=== PATIENT | female | born 1940 | race Caucasian/White ===

== ENCOUNTER 2016-11-05 13:01 | Emergency (ER) | payer MEDICARE ==
[~2016-11-05] VITALS: Ht 157.5 cm; Wt 54.0 kg
[~2016-11-05 13:01] MED LIST: ACET325 PO; AMLO5 PO; ATEN-102 PO; FLUN25I; LISI-363 PO; META0.52 PO; TAB-TAB PO; [UNRECOGNIZED DRUG - CODE] PO
[2016-11-05 13:03] VITALS: BP 162/84; PULSE 67; RESP 16; TEMP 97.7; O2SAT 99
--- NOTE | 2016-11-05 14:23 | RADRPT ---
EXAM DATE/TIME: 11/05/2016 13:58 [facility] COMPARISON: No previous studies available for comparison. INDICATIONS : Left hand pain after fall while walking. MEDICAL HISTORY : None. SURGICAL HISTORY : None. ENCOUNTER: Initial ACUITY: 1 day PAIN SCORE: 5/10 LOCATION: Left hand. FINDINGS: 3 views of the left hand demonstrate no fracture or dislocation. 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 No soft tissue abnormality is identified and no radiopaque foreign body is seen. CONCLUSION: No acute left hand abnormality is identified. 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 Geovani Marino MD on November 05, 2016 at 14:20 Board Certified Radiologist. This report was verified electronically.
--- NOTE | 2016-11-05 14:24 | RADRPT ---
EXAM DATE/TIME: 11/05/2016 13:59 [facility] COMPARISON: No previous studies available for comparison. INDICATIONS : Left wrist pain after fall while walking. MEDICAL HISTORY : None. SURGICAL HISTORY : None. ENCOUNTER: Initial ACUITY: 1 day PAIN SCORE: 5/10 LOCATION: Left wrist. FINDINGS: Three views of the left wrist demonstrate no fracture or dislocation. Mineralization is within normal limits. 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 No soft tissue abnormality or radiopaque foreign body is identified. CONCLUSION: No acute left wrist abnormality is identified. 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 Geovani Marino MD on November 05, 2016 at 14:22 Board Certified Radiologist. This report was verified electronically.
--- NOTE | 2016-11-05 14:24 | RADRPT ---
EXAM DATE/TIME: 11/05/2016 14:05 [facility] COMPARISON: No previous studies available for comparison. INDICATIONS : Left knee pain after fall while walking. MEDICAL HISTORY : None. SURGICAL HISTORY : None. ENCOUNTER: Initial ACUITY: 1 day PAIN SCORE: 5/10 LOCATION: Left knee. FINDINGS: Four views of the left knee demonstrate no fracture or dislocation. No joint effusion is present. The re is no significant arthropathy and mineralization is within normal limits. No soft tissue abnormali ty or radiopaque foreign body is identified. CONCLUSION: Normal examination of the left knee. Geovani Marino MD on November 05, 2016 at 14:23 Board Certified Radiologist. This report was verified electronically.
[2016-11-05] MEDS ORDERED: ONDANSETRON HCL 4 MG/2 ML VIAL IM ONE (14:30)
[2016-11-05] MEDS ORDERED: LIDOCAINE 1%/EPINEPHrine 1:100,000 SOLN 20 ML VIAL INFIL ONE (14:30)
[2016-11-05] MEDS ORDERED: MORPHINE SULFATE 4 MG/ML INJ IM ONE (14:30)
[2016-11-05] MEDS ORDERED: TETANUS/DIPHTHERIA TOXOID ADULT 0.5 ML VIAL IM ONE (14:30)
--- NOTE | 2016-11-05 14:31 | RADRPT ---
EXAM DATE/TIME: 11/05/2016 14:09 [facility] COMPARISON: No previous studies available for comparison. INDICATIONS : Trauma; fall, facial injuries. RADIATION DOSE: 39.86 CTDIvol (mGy) MEDICAL HISTORY : Cardiovascular disease. Hypertension. Squamous cell cancer. SURGICAL HISTORY : Tonsillectomy. ENCOUNTER: Initial ACUITY: 1 day PAIN SCALE: 0/10 LOCATION: cranial TECHNIQUE: Multiple contiguous axial images were obtained of the head. Using automated exposure control and adj ustment of the mA and/or kV according to patient size, radiation dose was kept as low as reasonably a chievable to obtain optimal diagnostic quality images. FINDINGS: CEREBRUM: The ventricles are normal. There is mild cerebral atrophy and mild periventricular white matter low a ttenuation. No evidence of midline shift, mass lesion, hemorrhage or acute infarction. No extra-axi al fluid collections are seen.POSTERIOR FOSSA: The cerebellum and brainstem demonstrate no acute finding. The 4th ventricle is midline. The cerebe llopontine angle is unremarkable. EXTRACRANIAL: Visualized sinuses are clear. SKULL: The calvaria is intact. No evidence of skull fracture. CONCLUSION: 1. No acute intracranial abnormality is identified. 2. Chronic changes include mild cerebral atrophy and mild periventricular white matter low attenuatio n characteristic of chronic microvascular ischemia. Geovani Marino MD on November 05, 2016 at 14:28 Board Certified Radiologist. This report was verified electronically.
--- NOTE | 2016-11-05 14:43 | RADRPT ---
EXAM DATE/TIME: 11/05/2016 14:09 [facility] COMPARISON: No previous studies available for comparison. INDICATIONS : Trauma; fall, facial contusions and swelling. RADIATION DOSE: 61.31 CTDIvol (mGy) MEDICAL HISTORY : Cardiovascular disease. Hypertension. Squamous cell carcinoma. SURGICAL HISTORY : Tonsillectomy. ENCOUNTER: Initial ACUITY: 1 day PAIN SCORE: 6/10 LOCATION: Bilateral facial TECHNIQUE: Volumetric scanning of the facial bones was performed. Using automated exposure control and adjustme nt of the mA and/or kV according to patient size, radiation dose was kept as low as reasonably achiev able to obtain optimal diagnostic quality images. FINDINGS: ORBITS: The orbital structures are intact. The retroconal structures have a normal configuration. No radiop aque foreign bodies are seen. The lenses are normally located. NASAL BONE: The nasal bones and maxillary spine are intact. ZYGOMATIC ARCHES: Symmetric without evidence of fracture. SINUSES: There is mild mucoperiosteal thickening within the left maxillary sinus. Remaining sinuses are clear. No air-fluid levels seen. NASAL CAVITY: The nasal septum is intact and midline. The lacrimal ducts are intact. SOFT TISSUES: No radiopaque foreign bodies seen. There is soft tissue swelling in the region of the lower left supe rficial to the mandible. INTRACRANIAL: No acute intracranial abnormality is seen. OTHER: The mandible and pterygoid plates are intact. CONCLUSION: Lower lip region soft tissue swelling. No fracture is identified. Geovani Marino MD on November 05, 2016 at 14:38 Board Certified Radiologist. This report was verified electronically.
--- NOTE | 2016-11-05 14:44 | PD ---
Physical Exam Date Seen by Provider: Nov 05, 2016 Time Seen by Provider: 14:30 Data Data Last Documented VS Vital Signs Date Time Temp Pulse Resp B/P Pulse Ox O2 Delivery O2 Flow Rate FiO2 11/05/16 14:24 16 98 Room Air 11/05/16 13:03 97.7 67 162/[address] Brain W/O Iv Contrast(Rout) (11/05/16 ) Ct Facial Bones W/O Iv Cont (11/05/16 ) Wrist, Complete ([id number]) (11/05/16 ) Knee, Complete (4vws) (11/05/16 ) Hand, Complete ([id number]) (11/05/16 ) Morphine Inj (Morphine Inj) (11/05/16 14:30) Ondansetron Inj (Zofran Inj) (11/05/16 14:30) Tetanus/Diphtheria Tox Adult (Tetanus/Di (11/05/16 14:30) Lidocai-Epi 1%-1:100,000 Inj (Xylocaine- (11/05/16 14:30) MDM Supervised Visit with TREY: Yes Narrative Course I, Dr. Alexandra, have reviewed the advance practice practitioner's documentation and am in agreement, met with the patient face to face, made the diagnosis, and the medical decision making was done by me. *My assessment and Findings: Patient has a pulse and teeth. She has a lip laceration. She is awake and alert.] Naomie Alexandra MD Nov 05, 2016 14:44
--- NOTE | 2016-11-05 14:53 | PD ---
HPI Chief Complaint: Fall Time Seen by Provider: 14:48 Travel History International Travel<30 days: No Contact w/Intl Traveler<30days: No Traveled to known affect area: No History of Present Illness HPI 76-year-old female presents to the emergency department for evaluation after a trip and fall. Patient states she was walking when she tripped over a tree root. She states that she fell onto concrete hitting her face, left hand, left knee. She denies any loss of consciousness. She denies neck pain or back pain. No chest pain or abdominal pain. No nausea or vomiting. She denies any hip or pelvic pain. She has been ambulatory since the fall. Patient reports current breast cancer undergoing chemotherapy. Patient states she also has several chipped teeth from the fall. Patient does not believe her tetanus immunization is up-to-date. PFSH Past Medical History Blood Disorders: No Heart Rhythm Problems: Yes (TACHYCARDIA) Cancer: Yes (SQUAMOUS CELL) Cardiovascular Problems: Yes (HTN) High Cholesterol: Yes Chemotherapy: Yes Chest Pain: Yes Congestive Heart Failure: No Diabetes: No Diminished Hearing: No Endocrine: No GERD: Yes Genitourinary: No Hepatitis: No Hiatal Hernia: No Hypertension: Yes Immune Disorder: No Musculoskeletal: No Neurologic: No Psychiatric: No Reproductive: No Respiratory: No Radiation Therapy: No Thyroid Disease: No Tetanus Vaccination: > 5 Years Influenza Vaccination: Yes ?: Not Menopausal: Yes : 1 Para: 1 Past Surgical History AICD: No Joint Replacement: No Pacemaker: No Tonsillectomy: Yes Other Surgery: Yes Social History Alcohol Use: Yes (OCCASIONAL) Tobacco Use: No Substance Use: No Allergies-Medications (Allergen,Severity, Reaction): Coded Allergies: Adhesives (Verified Allergy, Intermediate, rash, 06/30/16) Reported Meds & Prescriptions Reported Meds & Active Scripts Active Reported Flunisolide 0.025 % Spr 2 [place] NA BID EACH NOSTRIL Metamucil (Psyllium) 0.52 Gm Cap 6 Cap PO BID Tylenol (Acetaminophen) 325 Mg Tab 650 Mg PO Q6H PRN Simply Sleep (Diphenhydramine Hcl (Sleep)) 25 Mg Tab 25 Mg PO PRN Norvasc (Amlodipine Besylate) 5 Mg Tab 5 Mg PO DAILY Multivitamin (Multivitamins) 1 Tab Tab 1 Tab PO HS Atenolol 50 Mg Tab 50 Mg PO DAILY Lisinopril 20 mg (Lisinopril) 20 Mg Tab 40 Mg PO DAILY Review of Systems Except as stated in HPI: all other systems reviewed are Neg Physical Exam Narrative GENERAL: Well-developed well-nourished elderly female patient, afebrile. SKIN: Warm and dry. HEAD: Normocephalic. Patient has abrasion to the area between the nose and the upper lip. She also has a 3 centimeter through and through laceration to the upper inner lip. Patient has superficial abrasion to the left anterior knee. She has multiple superficial abrasions noted to the left dorsal hand. ENT: Mucosa pink and moist. No erythema or exudates. No uvular edema. No uvular , palatal, or tonsillar deviation. Airway patent. Nasal turbinates appear normal without nasal blood, purulent drainage or septal hematoma. Bilateral tympanic membranes are clear without erythema or perforation. Patient has several broken teeth. EYES: No scleral icterus. No injection or drainage. NECK: Supple, trachea midline. No JVD or lymphadenopathy. CARDIOVASCULAR: Regular rate and rhythm without murmurs, gallops, or rubs. RESPIRATORY: Breath sounds equal bilaterally. No accessory muscle use. Lungs sounds are clear to auscultation. GASTROINTESTINAL: Abdomen soft, non-tender, nondistended. MUSCULOSKELETAL: No cyanosis, or edema. BACK: Nontender without obvious deformity. No CVA tenderness. No midline spinal tenderness. Data Data Last Documented VS Vital Signs Date Time Temp Pulse Resp B/P Pulse Ox O2 Delivery O2 Flow Rate FiO2 11/05/16 15:05 16 11/05/16 14:24 98 Room Air 11/05/16 13:03 97.7 67 162/[address] Brain W/O Iv Contrast(Rout) (11/05/16 ) Ct Facial Bones W/O Iv Cont (11/05/16 ) Wrist, Complete ([id number]) (11/05/16 ) Knee, Complete (4vws) (11/05/16 ) Hand, Complete ([id number]) (11/05/16 ) Morphine Inj (Morphine Inj) (11/05/16 14:30) Ondansetron Inj (Zofran Inj) (11/05/16 14:30) Tetanus/Diphtheria Tox Adult (Tetanus/Di (11/05/16 14:30) Lidocai-Epi 1%-1:100,000 Inj (Xylocaine- (11/05/16 14:30) [facility] Medical Decision Making Medical Screen Exam Complete: Yes Emergency Medical Condition: Yes Medical Record Reviewed: Yes Interpretation(s) CT brain CONCLUSION: 1. No acute intracranial abnormality is identified. 2. Chronic changes include mild cerebral atrophy and mild periventricular white matter low attenuation characteristic of chronic microvascular ischemia. CT facial bones - CONCLUSION: Lower lip region soft tissue swelling. No fracture is identified. X-ray left wrist - CONCLUSION: No acute left wrist abnormality is identified. 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 X-ray left knee - CONCLUSION: Normal examination of the left knee. X-ray left hand - CONCLUSION: No acute left hand abnormality is identified. 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 Differential Diagnosis Contusion versus fracture versus abrasion versus laceration versus intracranial abnormality Narrative Course 76-year-old female presents to the emergency department after a trip and fall that occurred just prior to arrival. Tetanus immunization is up-to-date. CT of the brain shows no acute intracranial abnormality. CT of the facial bones shows no fracture. X-ray of the left wrist shows no acute left wrist abnormality. X-ray of the left knee is normal. X-ray left hand shows no acute abnormality. Patient gives verbal consent for laceration repair. Patient will be discharged with a prescription for Lortab for pain and amoxicillin for laceration. She is instructed on proper wound care and that sutures will dissolve. Patient's return for any acute worsening of symptoms. She is agreeable. Procedures Procedure Narrative LACERATION LOCATION: Upper lip LENGTH: 3 cm through and through laceration NUMBER OF STITCHES/SHELLY: 10 simple interrupted sutures REPAIR: The area of the laceration was prepped with Betadine and sterilely draped. The laceration was infiltrated with 1% lidocaine with epinephrine. The wound was copiously irrigated and explored without evidence of foreign body, tendon injury or neurovascular injury. The wound was closed using 5-0 Vicryl. This was a 2 layer repair. The patient was advised to keep the dressing clean and dry. Diagnosis Primary Impression: Laceration of lip Qualified Code: S01.511A - Laceration of lip, initial encounter Additional Impressions: Contusion Qualified Code: S60.222A - Contusion of left hand, initial encounter Abrasion, multiple sites Referrals: Primary Care Physician call for appointment Patient Instructions: Abrasion (ED), Care For Your Absorbable Stitches (ED), General Instructions, Laceration (ED) Additional Instructions: Clean abrasions twice daily with soap and water and apply [id number] antibiotic ointment. Rinse your mouth out with water after eating. Take your antibiotic as directed until gone. Sutures will dissolve. Follow-up with your dentist for broken teeth. Return to the emergency department for any acute worsening of symptoms. Med/Other Pt SpecificInfo: Prescription(s) given Scripts Amoxicillin-Clavulanate (Augmentin)875-125 mg [id number] Mg PO BID 7 Days Ref 0 not for use in CrCl <30 ml/min. Prov:Ramila Saldana 11/05/16 Hydrocodone-Acetaminophen (Lortab)5-325 Mg Tab1 Tab PO Q6H PRN (PAIN) #16 TAB Ref 0 Prov:Naomie Alexandra MD 11/05/16 Disposition: 01 DISCHARGE HOME Condition: Stable Ramila Saldana Nov 05, 2016 14:53
[2016-11-05 15:05] VITALS: RESP 16
[2016-11-05] MEDS ORDERED: HYDR-3533 PO (15:26)
[2016-11-05] MEDS ORDERED: AUGM875T PO (15:29)
== END 2016-11-05 15:49 | disposition home or self-care (01) ==
LOC: NEPA 13:01
DX: S01.511A Laceration without foreign body of lip, initial encounter (principal); S80.212A Abrasion, left knee, initial encounter; S60.512A Abrasion of left hand, initial encounter; Z23 Encounter for immunization; I10 Essential (primary) hypertension; W01.198A Fall on same level from slipping, tripping and stumbling with subsequent striking against other object, initial encounter; Y93.01 Activity, walking, marching and hiking; Y92.9 Unspecified place or not applicable; E78.00 Pure hypercholesterolemia, unspecified
CPT/HCPCS: 12052; 70450; 70486; 73110; 73130; 73564; 90471; 90714; 96372; 99284; J2270; J2405